=== PATIENT | female | born 1975 | race Caucasian/White ===

== ENCOUNTER 2021-09-05 15:14 | Emergency (ER) | payer OTHER, SELFPAY ==
--- NOTE | 2021-09-05 15:22 | ED.URI ---
HPI - URI/Sore Throat General Chief Complaint: Upper Respiratory Infection Stated Complaint: Fatigue,Congestion,Sore Throat,Cough Time Seen by Provider: 09/05/21 15:23 Source: patient, family and RN notes reviewed History of Present Illness HPI Narrative: Patient is a 46-year-old female presents the urgent care with complaints of fatigue, congestion, sore throat and cough. Patient states her symptoms started last night and she has been taking Aleve. Patient had a PCR test this morning at [facility]. Denies of any recent exposure and patient has been vaccinated. States that her son is also symptomatic as of 630 this morning. Denies of any shortness of breath or chest pain. No other acute complaints. No acute distress noted. Patient aware of the plan of care. Some parts of this dictation were generated by voice recognition software and may contain typographical and/or grammatical inaccuracies. Related Data Home Medications Medication Instructions Recorded Confirmed No Home Medications 10/23/19 09/05/21 Allergies Allergy/AdvReac Type Severity Reaction Status Date / Time No Known Allergies Allergy Mild Verified 09/05/21 15:20 Review of Systems Review of Systems: CONSTITUTIONAL: Reports of chills and sweats fatigue EYES: Denies visual changes, redness, or discharge. ENT: Reports of congestion and sore throat CARDIOVASCULAR: Denies chest pain, palpitations, or edema. RESPIRATORY: Denies cough or dyspnea. GASTROINTESTINAL: Denies abdominal pain, nausea, vomiting, or diarrhea. GENITOURINARY: Denies dysuria or hematuria. SKIN: Denies rash or itching. MUSCULOSKELETAL: Denies back pain, joint pain, or myalgia. NEUROLOGIC: Denies headache, numbness, or weakness. All other systems reviewed are negative, except as documented in HPI. [facility] Past Medical History Medical History (Updated 09/05/21 @ 15:56 by MOSHE Duong) Mixed urge and stress incontinence Surgical History Surgical History (Updated 06/18/19 @ 07:51 by Jada Sharpe CMA) History of breast augmentation Family History Family History (Updated 06/18/19 @ 07:52 by Jada Sharpe CMA) Father High triglycerides Mother Ovarian cancer Grandparent Lung cancer Social History Social History Smoking status: Never smoker Alcohol intake: current Comments At the time of my signature, I reviewed and agree with the nursing past medical, surgical, social, and family history. There is no relevant family history pertinent to the patient complaint. Exam Narrative: GENERAL: This is a well-nourished, well-developed patient, in no apparent distress. HEAD: normocephalic, atraumatic. EYES: PERRL. Sclera clear/white. Vision is grossly intact. EARS: External ears normal, auditory canals clear and without drainage, TMs normal without perforation. Hearing grossly intact. NOSE: External nose normal with no obvious nasal discharge, nares without redness, clear to yellow rhinorrhea. THROAT: Mucous membranes moist, mild erythema noted to the right posterior oropharynx with moderate postnasal drainage without exudate or ulceration NECK: Neck supple, non-tender without lymphadenopathy CARDIOVASCULAR: Regular rate and rhythm without murmurs, gallops, or rubs. RESPIRATORY: Clear to auscultation. Breath sounds equal bilaterally. No wheezes, rales, or rhonchi. SKIN: warm, intact with no suspicious lesions or rash, good texture and turgor. NEURO: awake, alert, and oriented to person, place and time. There were no obvious focal neurologic abnormalities. EXTREMITIES: No clubbing, cyanosis, or edema. Course Course Level of Care: Express Care Visit Vital Signs Vital signs: Vital Signs Temperature 98.0 F 09/05/21 15:31 Pulse Rate 88 09/05/21 15:31 Respiratory Rate 18 09/05/21 15:31 Blood Pressure 111/70 09/05/21 15:31 Pulse Oximetry 99 09/05/21 15:31 Temperature 98.0 F 09/05/21 15:31 Pulse Rate 88 09/05/21 15:31 Respiratory R
[2021-09-05 15:31] VITALS: BP 111/70; PULSE 88; RESP 18; TEMP 36.7; O2SAT 99
== END 2021-09-05 15:56 | disposition home or self-care (01) ==
PROVIDERS: Emergency Provider Nurse Practitioner Family
DX: Z20.822 Contact with and (suspected) exposure to COVID-19 (principal); R05.9 Cough, unspecified; J02.9 Acute pharyngitis, unspecified; R53.83 Other fatigue; R09.89 Other specified symptoms and signs involving the circulatory and respiratory systems
CPT/HCPCS: 87804; 99213; G0463

== ENCOUNTER 2022-06-15 19:17 | Emergency (ER) | payer OTHER, SELFPAY ==
--- NOTE | 2022-06-15 19:19 | ED.URI ---
HPI - URI/Sore Throat General Chief Complaint: Upper Respiratory Infection Stated Complaint: Headache,Sore Throat,Chills Time Seen by Provider: 06/15/22 19:18 Source: patient Mode of arrival: ambulatory Limitations: no limitations History of Present Illness HPI Narrative: Ms. Matta is a 47-year-old female patient presenting to the clinic today with complaints of headache, sore throat, and chills x1 day. She reports symptoms started this afternoon. She reports that she has had direct influenza exposure as she has been working in the daycare setting. MD elicited complaint: sore throat and nasal congestion Related Data Allergies Allergy/AdvReac Type Severity Reaction Status Date / Time No Known Allergies Allergy Mild Verified 06/15/22 19:24 Review of Systems Review of Systems: Pertinent positives per HPI. Patient denies any rash, visual changes, dizziness, cough, shortness of breath, chest pain, palpitations, nausea, vomiting, diarrhea, constipation, abdominal pain, or any urinary issues. [facility] Past Medical History Medical History Mixed urge and stress incontinence Surgical History Surgical History History of breast augmentation Family History Family History Father High triglycerides Mother Ovarian cancer Grandparent Lung cancer Social History Social History Smoking status: Never smoker Alcohol intake: current Comments At the time of my signature, I reviewed and agree with the nursing past medical, surgical, social, and family history. There is no relevant family history pertinent to the patient complaint. Exam Narrative: General: Well-developed, well nourished, in no apparent distress Head: Normocephalic, atraumatic Eyes: Pupils equally round and reactive to light bilaterally, EOM intact, sclera and conjunctive clear, no discharge, lids normal Ears: TMs intact and congested, ear canals clear, no drainage, grossly hearing normal. Nose: Nares patent, clear nasal discharge, no inflammation, no sinus tenderness. Mouth: Oral pharynx without lesions or masses, good dentition, MMM. Oropharynx red Neck: Supple, trachea midline, no enlargement of anterior or posterior cervical nodes, no thyroid masses or goiter palpable. Cardio: Regular rate and rhythm, s1 and s2 normal, no murmur appreciated. Resp: Clear to auscultation bilaterally, no rhonchi, rales, wheezing or rubs Course Course Emergency Course: Portions of this record may have been created with voice recognition software. Level of Care: Express Care Visit Vital Signs Vital signs: Vital Signs Temperature 37.3 C 06/15/22 19:32 Pulse Rate 108 H 06/15/22 19:32 Respiratory Rate 18 06/15/22 19:32 Blood Pressure 136/72 06/15/22 19:32 Pulse Oximetry 98 06/15/22 19:32 Oxygen Delivery Room Air 06/15/22 19:32 Temperature 37.3 C 06/15/22 19:32 Pulse Rate 108 H 06/15/22 19:32 Respiratory Rate 18 06/15/22 19:32 Blood Pressure 136/72 06/15/22 19:32 Pulse Oximetry 98 06/15/22 19:32 Oxygen Delivery Room Air 06/15/22 19:32 Vital signs reviewed MDM - URI/Sore Throat MDM Narrative Medical decision making narrative: At the time of visit patient is resting comfortably on exam table. I suspect patient has viral syndrome/pharyngitis/upper respiratory infection with exposure to influenza. Will treat with some Tamiflu. Supportive measures were discussed with the patient she voiced understanding of discharge instructions and agrees to treatment plan. Influenza and strep testing were negative in the clinic Differential Diagnosis Differential diagnosis: Likely upper respiratory infection, otitis media, sinusitis, viral infection, bronchitis, influenza, pharyngitis and other (COV
[2022-06-15 19:32] VITALS: BP 136/72; PULSE 108; RESP 18; TEMP 37.3; O2SAT 98
== END 2022-06-15 19:50 | disposition home or self-care (01) ==
PROVIDERS: Emergency Provider Nurse Practitioner Family
DX: B34.9 Viral infection, unspecified (principal); J06.9 Acute upper respiratory infection, unspecified; J02.9 Acute pharyngitis, unspecified; Z20.828 Contact with and (suspected) exposure to other viral communicable diseases
CPT/HCPCS: 87081; 87420; 87426; 87804; 87880; 99213; C9803; G0463

== ENCOUNTER 2022-06-18 10:45 | Emergency (ER) | payer OTHER, SELFPAY ==
--- NOTE | 2022-06-18 10:50 | ED.URI ---
HPI - URI/Sore Throat General Chief Complaint: Ear Stated Complaint: lt ear pain Time Seen by Provider: 06/18/22 10:50 Source: patient Mode of arrival: ambulatory Limitations: no limitations History of Present Illness HPI Narrative: Mrs. Matta is a 47-year-old female patient presenting to the clinic today with complaints of left-sided ear pain. She reports she has had ear pain since Saturday. Was seen here and was prescribed Tamiflu and she has had viral symptoms and flu exposure. MD elicited complaint: other (Left ear pain) Related Data Allergies Allergy/AdvReac Type Severity Reaction Status Date / Time No Known Allergies Allergy Mild Verified 06/18/22 11:05 Review of Systems Review of Systems: Pertinent positives per HPI. Patient denies any fever, chills, rash, headache, visual changes, dizziness, cough, shortness of breath, chest pain, palpitations, nausea, vomiting, diarrhea, constipation, abdominal pain, or any urinary issues. [facility] Past Medical History Medical History Mixed urge and stress incontinence Surgical History Surgical History History of breast augmentation Family History Family History Father High triglycerides Mother Ovarian cancer Grandparent Lung cancer Social History Social History Smoking status: Never smoker Alcohol intake: current Comments At the time of my signature, I reviewed and agree with the nursing past medical, surgical, social, and family history. There is no relevant family history pertinent to the patient complaint. Exam Narrative: General: Well-developed, well nourished, in no apparent distress Head: Normocephalic, atraumatic Eyes: Pupils equally round and reactive to light bilaterally, EOM intact, sclera and conjunctive clear, no discharge, lids normal Ears: Right TMs intact and clear, left TM intact, red, bulge ear canals clear, no drainage, grossly hearing normal. Nose: Nares patent, no discharge, no inflammation, no sinus tenderness. Mouth: Oral pharynx without lesions or masses, good dentition, MMM. Neck: Supple, trachea midline, no enlargement of anterior or posterior cervical nodes, no thyroid masses or goiter palpable. Cardio: Regular rate and rhythm, s1 and s2 normal, no murmur appreciated. Resp: Clear to auscultation bilaterally, no rhonchi, rales, wheezing or rubs Course Course Emergency Course: Portions of this record may have been created with voice recognition software. Level of Care: Express Care Visit Vital Signs Vital signs: Vital Signs Temperature 36.3 C L 06/18/22 10:58 Pulse Rate 78 06/18/22 10:58 Respiratory Rate 18 06/18/22 10:58 Blood Pressure 116/68 06/18/22 10:58 Pulse Oximetry 100 06/18/22 10:58 Oxygen Delivery Room Air 06/18/22 10:58 Temperature 36.3 C L 06/18/22 10:58 Pulse Rate 78 06/18/22 10:58 Respiratory Rate 18 06/18/22 10:58 Blood Pressure 116/68 06/18/22 10:58 Pulse Oximetry 100 06/18/22 10:58 Oxygen Delivery Room Air 06/18/22 10:58 Vital signs reviewed MDM - URI/Sore Throat MDM Narrative Medical decision making narrative: At the time of visit patient is resting comfortably on the exam table. Patient has left otitis media. Prescription for amoxicillin was sent to the pharmacy. Supportive measures were discussed with the patient she voiced understanding of discharge instructions and agrees to the treatment plan. Differential Diagnosis Differential diagnosis: Likely upper respiratory infection, otitis media, sinusitis, viral infection, bronchitis, influenza, pharyngitis and other (COVID) Discharge Plan Discharge Clinical Impression: Left acute otitis media Patient Disposition: Home, Self-Care Condition: Stable I
[2022-06-18 10:58] VITALS: BP 116/68; PULSE 78; RESP 18; TEMP 36.3; O2SAT 100
== END 2022-06-18 11:17 | disposition home or self-care (01) ==
PROVIDERS: Emergency Provider Nurse Practitioner Family
DX: H66.92 Otitis media, unspecified, left ear (principal)
CPT/HCPCS: 99213; G0463

== ENCOUNTER 2022-06-22 10:04 | Emergency (ER) | payer OTHER, SELFPAY ==
[2022-06-22 10:20] VITALS: BP 112/66; PULSE 82; RESP 18; TEMP 36.4; O2SAT 100
--- NOTE | 2022-06-22 10:36 | ED.EAR ---
HPI - Ear Problem General Chief complaint: Ear Stated complaint: ear discomfort Source: patient Mode of arrival: ambulatory Limitations: no limitations History of Present Illness HPI Narrative: This is a 47-year-old female presented to our urgent care with complaints of ear pain and pressure, uncontrolled cough and nasal drainage. Patient was previously at our facility on 06/15 and 7 treated for influenza and otitis media. The patient denies SOB, CP, palpitation, extremity numbness, lightheadedness, dizziness, constipation, diarrhea, chills, or fever. Patient notes that her hearing has decreased she denies any discharge from either ear. MD Complaint: ear pain and decreased hearing Location: bilateral Related Data Allergies Allergy/AdvReac Type Severity Reaction Status Date / Time No Known Allergies Allergy Mild Verified 06/22/22 10:26 Review of Systems Review of Systems: A 14 organ system Review of Systems was performed and pertinent positives included in the HPI, otherwise remaining ROS is negative. [facility] Past Medical History Medical History Mixed urge and stress incontinence Surgical History Surgical History History of breast augmentation Family History Family History Father High triglycerides Mother Ovarian cancer Grandparent Lung cancer Social History Social History Smoking status: Never smoker Alcohol intake: current Exam Narrative: GENERAL: This is a well-nourished, well-developed patient, in no apparent distress. HEAD: normocephalic, atraumatic. EYES: PERRL. Sclera clear/white. Vision is grossly intact. EARS: External ears normal, auditory canals clear with erythema and edema, TMs bulging without perforation. Hearing grossly intact. NOSE: External nose normal with no obvious nasal discharge, nares without redness, no rhinorrhea. THROAT: Mucous membranes moist, posterior pharynx slightly reddened. NECK: Neck supple, non-tender without lymphadenopathy, masses or thyromegaly. CARDIOVASCULAR: Regular rate and rhythm without murmurs, gallops, or rubs. RESPIRATORY: Clear to auscultation. Breath sounds equal bilaterally. No wheezes, rales, or rhonchi. GASTROINTESTINAL: Abdomen soft, non-tender, nondistended. Bowel sounds are active. No hepato-splenomegaly, or palpable masses. No guarding. SKIN: warm, intact with no suspicious lesions or rash, good texture and turgor. NEURO: awake, alert, and oriented to person, place and time. There were no obvious focal neurologic abnormalities. EXTREMITIES: Normal range of motion. No edema. No calf tenderness. . Course Course Emergency Course: Patient was previously discharged on amoxicillin will change her antibiotic to cefdinir she will also discharge with Flonase instructed to continue her antihistamine Tessalon Perles for her cough. Level of Care: Express Care Visit Vital Signs Vital signs: Vital Signs Temperature 97.5 F L 06/22/22 10:20 Pulse Rate 82 06/22/22 10:20 Respiratory Rate 18 06/22/22 10:20 Blood Pressure 112/66 06/22/22 10:20 Pulse Oximetry 100 06/22/22 10:20 Oxygen Delivery Room Air 06/22/22 10:20 Temperature 97.5 F L 06/22/22 10:20 Pulse Rate 82 06/22/22 10:20 Respiratory Rate 18 06/22/22 10:20 Blood Pressure 112/66 06/22/22 10:20 Pulse Oximetry 100 06/22/22 10:20 Oxygen Delivery Room Air 06/22/22 10:20 Medical Decision Making Differential Diagnosis Differential Diagnosis: Otitis media versus otitis externa versus sinusitis Vital Signs Vital Signs: Vital Signs Temperature 97.5 F L 06/22/22 10:20 Pulse Rate 82 06/22/22 10:20 Respiratory Rate 18 06/22/22 10:20 Blood Pressure 112/66 06/22/22 10:20 Pulse Oximetry 100 06/22/22 10:20
== END 2022-06-22 10:41 | disposition home or self-care (01) ==
PROVIDERS: Emergency Provider Nurse Practitioner
DX: H66.93 Otitis media, unspecified, bilateral (principal)
CPT/HCPCS: 99213; G0463

== ENCOUNTER → 2023-05-01 08:43 | Outpatient (CLI) | payer OTHER, SELFPAY ==
--- NOTE | ~2023-05-01 | XR_ITS ---
AP and lateral views of the right hip Clinical history: Impingement Findings: No acute fracture or dislocation is seen. Probable os acetabuli noted. Osseous alignment is anatomic. Bilateral hip and SI joint spaces are preserved. Soft tissues are unremarkable. Impression: Probable os acetabuli. No other significant findings. Reviewed, dictated and finalized at [facility]. Impression: Probable os acetabuli. No other significant findings.
== END ==
PROVIDERS: PCP Chiropractor; Visit Provider Chiropractor
DX: M25.551 Pain in right hip (principal)
CPT/HCPCS: 73502

== ENCOUNTER → 2023-05-22 11:47 | Outpatient (CLI) | payer OTHER, SELFPAY ==
--- NOTE | ~2023-05-22 | XR_ITS ---
EXAMINATION: XR fl inj hip RT for MR/CT DATE: 05/22/2023 12:52 INDICATION: Right-sided pain. No prior surgery. TECHNIQUE: A time-out was performed to verify the patient's name, date of , and procedure to b e performed. The procedure including the risks, benefits, and alternatives was discussed with the pat ient. Risks discussed included bleeding and infection. The patient understood the risks and agreed to proceed. The skin overlying the right hip joint was prepped and draped in usual sterile fashion. An esthetic was administered with 1% lidocaine subcutaneously. A 22 G needle was advanced under fluoros copic guidance into the joint. Subsequently, injectate consisting of 9 mL of 1:200 Multihance, 1:4 1 % lidocaine, and 1:4 Omnipaque 240 was instilled. The needle was removed and the entry site was amy jeannette and dressed. There were no immediate complications. Fluoroscopy exposure time was 0.0 minutes. T he total number of images was 2. FINDINGS: Real-time fluoroscopy demonstrates the needle and contrast in the right hip joint. IMPRESSION: 1. Successful right hip joint injection of contrast for subsequent MR arthrography. Reviewed, dictated and finalized at location A. IMPRESSION: 1. Successful right hip joint injection of contrast for subsequent MR arthrogra phy.
--- NOTE | ~2023-05-22 | MR_ITS ---
EXAMINATION: MR hip RT w con DATE: 05/22/2023 13:22 INDICATION: Right hip pain. TECHNIQUE: Magnetic resonance imaging (MRI) of the right hip was performed without intravenous contra st after intra-articular injection of contrast (MR arthrogram). COMPARISON: Right hip radiographs 05/01/2023 FINDINGS: Bones/cartilage: Bone alignment is normal. No fracture. Small [id number] images demonstrate deep partial thickness cartilage loss of right femoral head superiorly. There is cartilage surface irregularity of right tanisha tabulum. There are tiny right hip osteophytes. Large [id number] images of left hip demonstrate par tial-thickness cartilage loss of femoral head superiorly. Labrum: Right acetabular labrum is intact. Fluid: Right hip joints well distended by contrast. There is no left hip joint effusion. No trochanteric bur sitis. Soft tissues: The hamstring tendon origins are normal. The iliopsoas tendons are normal. The gluteus minimus and gl uteus medius tendons are normal. IMPRESSION: 1. Moderate chondrosis of right hip and mild chondrosis of left hip. Reviewed, dictated and finalized at location [facility].
== END ==
PROVIDERS: PCP Orthopaedic Surgery; Visit Provider Orthopaedic Surgery
DX: M25.551 Pain in right hip (principal)
CPT/HCPCS: 20610; 73722; 77002; A9577; Q9967

== ENCOUNTER 2024-06-22 09:03 | Emergency (ER) | payer OTHER, SELFPAY ==
[2024-06-22 09:28] VITALS: BP 102/61; PULSE 72; RESP 16; TEMP 36.2; O2SAT 100
--- NOTE | 2024-06-22 09:32 | ED_ITS ---
HPI - Extremity Problem General Chief complaint: Extremity Problem,Nontraumatic Stated complaint: RT wrist pain Time Seen by Provider: 06/22/24 09:20 Source: patient, RN notes reviewed and old records reviewed Mode of arrival: ambulatory Limitations: no limitations History of Present Illness HPI Narrative: [id number] patient presents with complaints of right wrist pain that began yesterday after playing basketball with her son. She denies any injury or trauma. She reports pain is worse with movement of the wrist. There is no swelling, no obvious deformity. She has not been taking anything for her symptoms. She voices no other concerns or complaints Related Data Allergies Allergy/AdvReac Type Severity Reaction Status Date / Time No Known Allergies Allergy Mild Verified 06/22/24 09:23 Review of Systems Review of Systems: All systems reviewed & are unremarkable except as noted in HPI and below Constitutional: Constitutional: Reports no additional constitutional complaints ENT: Reports system reviewed and no additional complaints, except as documented Cardiovascular: Cardiovascular: Reports no additional cardiovascular complaints Respiratory: Respiratory: Reports no additional respiratory complaints Gastrointestinal: Gastrointestinal: Reports no additional gastrointestinal complaints Musculoskeletal: Musculoskeletal: Reports no additional musculoskeletal complaints and Reports as per HPI [facility] Past Medical History Medical History Mixed urge and stress incontinence Surgical History Surgical History History of breast augmentation History of endometrial ablation History of lumpectomy of right breast Family History Family History Father High triglycerides Mother Ovarian cancer Grandparent Lung cancer Social History Social History Smoking status: Never smoker Alcohol intake: current Substance use: never Lack of Transportation: No Lack of Food: Never True Current Housing: I Have Housing Concerned About Future Housing: No Difficulty Paying Gas/Electric Bills: No Difficulty Paying for Meds: No Currently Unemployed: No Education: Bachelor's Degree Difficulty w/ Childcare or Family Care: No Living arrangements: with family Occupation/Education: occupation 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 There is no relevant family history pertinent to the patient complaint. Exam Const: General: cooperative, no acute distress, alert and awake Orientation/consciousness: oriented to person, oriented to place and oriented to time HENMT: Head: normal to inspection Resp: Effort & Inspection: normal respiratory effort and able to speak in complete sentences Auscultation: clear to auscultation bilaterally, no crackles, no rales, no rhonchi and no wheezes Cardio: Palpation: normal PMI Rate: regular rate Rhythm: regular rhythm Heart sounds: S1 normal heart sound present and S2 normal heart sound present Neuro: General: oriented to person, oriented to place and oriented to time Cranial nerves: Yes CN's II-XII intact bilaterally Extrem: Right upper extremity: normal to inspection, full ROM, normal capillary refill and wrist normal to inspection, tenderness, normal ROM, normal vascular exam, radial pulse present and ulnar pulse present; no swelling, no ecchymosis and no deformity; no edema Hand/finger images: 1. tenderness Psych: Appearance: grossly normal Thought process: Normal thought process present Insight: Good insight present (Psych) Judgement: Good judgement present (Psych) Course Course Level of Care: Express Care Visit Vital Signs Vital signs: Vital Signs Temperature 97.2 F L 06/22/24 09:28 Pulse Rate 72 06/22/24 09:28 Respiratory Rate 16 06/22/24 09:28 Blood Pressure 102/61 06/22/24 09:28 Pulse Oximetry 100 06/22/24 09:28 Oxygen Delivery Room Air 06/22/24 09:28 Temperature 97.2 F L 06/22/24 09:28 Pulse Rate 72 06/22/24 09:28 Respiratory Rate 16 06/22/24 09:28 Blood Pressure 102/61 06/22/24 09:28 Pulse Oximetry 100 06/22/24 09:28 Oxygen Delivery Room Air 06/22/24 09:28 Reviewed MDM - Extremity (Nontraumatic) MDM Narrative Medical decision making narrative: patient will nontraumatic injury to the right wrist. Advise rice therapy and anti-inflammatories. Dewayne wrap applied. Follow-up primary care provider. Discharge instructions reviewed with patient, as well as provided in writing per nursing staff. The instructions also include specific and strict return/GO TO THE ER as well as f/u information. All questions have been answered, and the patient deny any further questions with discharge and discharge plan. Some parts of this dictation were generated by voice recognition software and may contain typographical and/or grammatical inaccuracies. Differential Diagnosis Differential diagnosis: Likely other (Wrist fracture, wrist strain, wrist sprain) Discharge Plan Discharge Clinical Impression: Acute wrist pain Qualifiers: Laterality: right Qualified Code(s): M25.531 - Pain in right wrist Patient Disposition: Home, Self-Care Condition: Stable Instructions: Antibiotic Form, P.R.I.C.E. Treatment (ED) Additional Instructions: Follow-up with primary care provider. Emergency department for new or worse symptoms Patient Language: Syriac Prescriptions: New naproxen 500 mg tablet 500 mg PO BID PRN (Reason: pain) Qty: 14 0RF Follow-up/Referrals: Chris,REKHA Joshi [Primary Care Provider] - 2 Weeks Time of Disposition: 09:35
== END 2024-06-22 09:36 | disposition home or self-care (01) ==
PROVIDERS: Emergency Provider Nurse Practitioner Family; PCP Nurse Practitioner
DX: M25.531 Pain in right wrist (principal)
CPT/HCPCS: 99213; G0463